=== PATIENT | male | born 1980 | race Caucasian/White ===

== ENCOUNTER 2020-07-27 05:34 | Emergency (ER) | payer OTHER ==
--- NOTE | 2020-07-27 05:55 | EDM.PDOC ---
<Nima Roberto - Last Filed: 07/27/20 08:20> ED HPI GENERAL MEDICAL PROBLEM - General Chief Complaint: General Stated Complaint: CHEST PAIN SOB RAPID HEART BEAT Time Seen by Provider: 07/27/20 05:46 - History of Present Illness INITIAL COMMENTS - FREE TEXT/NARRATIVE: 40-year-old male presents the emergency room with rapid heart rate palpitations and chest pain. This is been going on most the night. The patient's had problems with high blood pressure and he is scheduled to see cardiology this next week. He also has an appointment coming up with his regular healthcare provider. He has had intermittent episodes like this in the past and is usually associated with quite a bit of anxiety. He is not having diaphoresis he feels quite shaky though, no nausea or vomiting. The patient had a stress test done about a year and a half ago that was nondiagnostic this was done [facility] in [place]. Left Chest Pain Score (Numeric/FACES): 7 - Related Data Allergies Allergy/AdvReac Type Severity Reaction Status Date / Time amoxicillin Allergy Rash Verified 07/27/20 05:53 Home Meds: Home Meds Hydrochlorothiazide/Lisinopril [Lisinopril/HCTZ 20-12.5 MG] 2 tab PO DAILY 07/27/20 [History] LORazepam [Ativan] 1 mg PO BID PRN #5 tab 07/27/20 [Rx] Rosuvastatin [Crestor] 20 mg PO DAILY 07/27/20 [History] ED ROS GENERAL - Review of Systems Review Of Systems: See Below Constitutional: Reports: No Symptoms HEENT: Reports: No Symptoms Respiratory: Reports: Shortness of Breath (With episodes of rapid heart rate palpitations and chest discomfort) Cardiovascular: Reports: Chest Pain Endocrine: Reports: No Symptoms GI/Abdominal: Reports: No Symptoms : Reports: No Symptoms, Urinary Retention Neurological: Reports: No Symptoms Psychiatric: Reports: Anxiety ED EXAM, GENERAL - Physical Exam Exam: See Below Exam Limited By: No Limitations General Appearance: Alert, Moderate Distress (He seems to be very anxious) Head: Atraumatic, Normocephalic Neck: Normal Inspection, Supple, Non-Tender, Full Range of Motion. No: Lymphadenopathy (L), Lymphadenopathy (R) Respiratory/Chest: No Respiratory Distress, Lungs Clear, Normal Breath Sounds Cardiovascular: Regular Rate, Rhythm, No Edema, No Murmur GI/Abdominal: Normal Bowel Sounds, Soft, Non-Tender, Other (Obese) Extremities: Normal Inspection, No Pedal Edema Neurological: Alert, Oriented Psychiatric: Anxious #1 Interpretation EKG Date: 07/27/20 Rhythm: NSR Rate (Beats/Min): 87 Cameron: Normal P-Wave: Present QRS: Normal ST-T: Other (Nondiagnostic ST depression inferior) Comparison: NA - No Prior EKG (In the records I have access to I cannot find a old EKG) Course - Re-Assessments/Exams Free Text/Narrative Re-Assessment/Exam: 07/27/20 08:24 Troponin is negative EKG is nondiagnostic patient had good relief of symptoms from Ativan. He does seem to have lot of problems with anxiety and this is not new for him. We will check a second troponin at this time. Anticipate discharge with a few Ativan in case he has problems between now and his follow- up coming with his regular healthcare provider later this week and he has follow-up with cardiology later this week. Departure - Departure Disposition: Home, Self-Care 01 Clinical Impression: Anxiety, Chest pain, Palpitations - Discharge Information Prescriptions: LORazepam [Ativan] 1 mg PO BID PRN #5 tab PRN Reason: Anxiety Referrals: Estefania Pérez PA-C [Primary Care Provider] - Forms: ED Department Discharge Additional Instructions: Return to the emergency room with any questions problems or worsening symptoms. Follow-up with your healthcare provider and with cardiology as scheduled this week. [facility] up by [place] is open between noon and 4 this afternoon I have sent a prescription for Ativan, this is the anxiety medication, you can take 1 as needed preferably not more than once a day. If you need this medication do not drive or return to work within 12 hours of using this. <Lavon Zaman - Last Filed: 07/27/20 09:09> Course - Vital Signs Last Recorded V/S: Last Vital Signs Temp 35.9 C L 07/27/20 05:49 Pulse 87 07/27/20 05:49 Resp 16 07/27/20 05:49 BP 189/92 H 07/27/20 05:49 Pulse Ox 98 07/27/20 05:49 - Orders/Labs/Meds Orders: Active Orders 24 hr Category Date Time Status EKG 12 Lead [EKG Documentation Completion] [RC] STAT Care 07/27/20 05:59 Active Labs: Laboratory Tests 07/27/20 07/27/20 07/27/20 Range/Units 06:03 06:03 08:24 WBC 7.09 (4.23-9.07) K/mm3 RBC 5.69 (4.63-6.08) M/mm3 Hgb 16.2 (13.7-17.5) gm/dl Hct 45.9 (40.1-51.0) % MCV 80.7 (79.0-92.2) fl MCH 28.5 (25.7-32.2) pg MCHC 35.3 (32.2-35.5) g/dl RDW Std Deviation 39.0 (35.1-43.9) fL Plt Count 305 (163-337) K/mm3 MPV 9.3 L (9.4-12.3) fl Neut % (Auto) 45.1 (34.0-67.9) % Lymph % (Auto) 37.2 (21.8-53.1) % Wheeler % (Auto) 9.3 (5.3-12.2) % Eos % (Auto) 6.8 (0.8-7.0) Baso % (Auto) 1.0 (0.1-1.2) % Neut # (Auto) 3.20 (1.78-5.38) K/mm3 Lymph # (Auto) 2.64 (1.32-3.57) K/mm3 Wheeler # (Auto) 0.66 (0.30-0.82) K/mm3 Eos # (Auto) 0.48 (0.04-0.54) K/mm3 Baso # (Auto) 0.07 (0.01-0.08) K/mm3 Sodium 136 (136-145) mEq/L Potassium 3.3 L (3.5-5.1) mEq/L Chloride 98 (98-107) mEq/L Carbon Dioxide 27 (21-32) mEq/L Anion Gap 14.3 (5-15) BUN 22 H (7-18) mg/dL Creatinine 1.3 (0.7-1.3) mg/dL Est Cr Clr Drug Dosing 77.21 mL/min Estimated GFR (MDRD) > 60 (>60) mL/min BUN/Creatinine Ratio 16.9 (14-18) Glucose 114 H (70-99) mg/dL Calcium 9.2 (8.5-10.1) mg/dL Magnesium 2.1 (1.8-2.4) mg/dL Total Bilirubin 0.6 (0.2-1.0) mg/dL AST 39 H (15-37) U/L ALT 102 H (16-63) U/L Alkaline Phosphatase 60 (46-116) U/L Troponin I < 0.017 < 0.017 (0.00-0.056) ng/mL Total Protein 8.3 H (6.4-8.2) g/dl Albumin 4.6 (3.4-5.0) g/dl Globulin 3.7 gm/dL Albumin/Globulin Ratio 1.2 (1-2) Meds: Medications Discontinued Medications Generic Name Dose Route Start Last Admin Trade Name Freq PRN Reason Stop Dose Admin Dexamethasone 12 mg 07/27/20 06:56 07/27/20 07:33 Dexamethasone 4 Mg/Ml 5 Ml Mdv IV 07/27/20 06:57 Not Given ONETIME ONE Lorazepam 1 mg 07/27/20 05:56 07/27/20 06:04 Lorazepam 2 Mg/Ml Sdv IVPUSH 07/27/20 05:57 1 mg ONETIME ONE Administration - Re-Assessments/Exams Free Text/Narrative Re-Assessment/Exam: 07/27/20 09:08 second troponin draw is less than 0.017 as well. Discharge orders have been written by Dr. Roberto. Departure - Departure Time of Disposition: 09:09 Sepsis Event Note (ED) - Focused Exam Vital Signs: Vital Signs Temp Pulse Resp BP Pulse Ox 07/27/20 05:49 35.9 C L 87 16 189/92 H 98
[2020-07-27] MEDS ORDERED: LORazepam 2 MG/ML SDV IVPUSH ONE (05:56)
[2020-07-27] MEDS ORDERED: Dexamethasone 4 MG/ML 5 ML MDV IV ONE (06:56)
== END 2020-07-27 09:20 | disposition home or self-care (01) ==
LOC: JD.ED 05:34
DX: F41.9 Anxiety disorder, unspecified (principal); R00.2 Palpitations; Z79.899 Other long term (current) drug therapy; Z88.0 Allergy status to penicillin
CPT/HCPCS: 36415; 80053; 83735; 84484; 85025; 93005; 93010; 96374; 99283; 99285-25; J2060